=== PATIENT | female | born 1995 | race Caucasian/White ===

== ENCOUNTER 2021-12-04 06:05 | Emergency (ER) | payer BC ==
[2021-12-04] MEDS ORDERED: SODIUM CHLORIDE 1,000 ML IV ONE ×2 (06:13→06:24)
[2021-12-04] MEDS ORDERED: ONDANSETRON 4 MG/2 ML VIAL ONE (06:14)
[2021-12-04] MEDS ORDERED: ONDANSETRON 4 MG/2 ML VIAL IVPB ONE (06:14)
[2021-12-04 06:27] VITALS: BP 129/73; PULSE 70; TEMP 98.5; BMI 22.1
[2021-12-04] MEDS ORDERED: METOCLOPRAMIDE HCL INJECTION 10 MG/2 ML VIAL IVPUSH ONE (06:29)
[2021-12-04] MEDS ORDERED: METOCLOPRAMIDE HCL INJECTION 10 MG/2 ML VIAL IVPB ONE (06:31)
[2021-12-04] MEDS ORDERED: METOCLOPRAMIDE HCL INJECTION 10 MG/2 ML VIAL ONE (06:32)
[2021-12-04 07:36] LABS: HCG,QUALITATIVE URINE Negative
[2021-12-04 08:02] LABS: EPITHELIAL CELLS MODERATE /hpf; URINE MUCUS 1+
[2021-12-04] MEDS ORDERED: PROMETHAZINE HCL 25 MG TABLET PO ONE (08:21)
[2021-12-04] MEDS ORDERED: DEXTROSE 5%-NORMAL SALINE 1,000 ML IV ONE (08:23)
[2021-12-04 09:08] LABS: ALBUMIN 3.5 g/dl (3.4-5.0); BILIRUBIN,TOTAL 0.7 mg/dl (0.2-1); CALCIUM 8.6 mg/dl (8.5-10); CREATININE 0.7 mg/dl (0.55-1.3)
[2021-12-04] MEDS ORDERED: HALOPERIDOL LACTATE 5 MG/ML IM ONE (10:02)
[2021-12-04 10:03] LABS: BASO % 0.1 % (0-2.0); HEMATOCRIT 37.4 % (32.4-45.2); LYMPH % 9.3 % (8-40); MCH 31.3 pg (25.7-33.7); MCHC 34.7 g/dl (32.0-36.0); MEAN CELL VOLUME 90.2 fl (80-96); MEAN PLT VOLUME 8.5 fl (7.5-11.1); MONO % 5.7 % (3.8-10.2); NEUT % 84.9 % (42.8-82.8); PLATELET COUNT 409 10^3/uL (134-434); RBC 4.15 M/mm3 (3.60-5.2); RDW 12.9 % (11.6-15.6)
[2021-12-04] MEDS ORDERED: HALOPERIDOL LACTATE 5 MG/ML ONE (10:06)
[2021-12-04] MEDS ORDERED: ASPIRIN 81 MG CHEWABLE TABLETS ONE (13:04)
[2021-12-04] MEDS ORDERED: HEPARIN NA (PORCINE) 5,000 UNITS/ML 1ML VIAL ONE (13:05)
== END 2021-12-04 11:43 | disposition home or self-care (01) ==
LOC: FER 06:05
PROC: 3E023GC Introduction of Other Therapeutic Substance into Muscle, Percutaneous Approach (ICD-10-PCS; principal; 2021-12-04)
PROC: 3E033GC Introduction of Other Therapeutic Substance into Peripheral Vein, Percutaneous Approach (ICD-10-PCS; principal; 2021-12-04)
DX: R11.15 Cyclical vomiting syndrome unrelated to migraine (principal)
CPT/HCPCS: 36415; 80053; 81003; 81015; 84703; 85025; 99284-25

== ENCOUNTER 2021-12-06 08:44 | Observation (INO) | payer BC ==
[2021-12-06] MEDS ORDERED: SODIUM CHLORIDE 1,000 ML IV ONE (08:46)
[2021-12-06] MEDS ORDERED: ONDANSETRON 4 MG/2 ML VIAL IVPB ONE (08:47)
[2021-12-06] MEDS ORDERED: ONDANSETRON 4 MG/2 ML VIAL ONE (09:12)
[2021-12-06 09:44] LABS: ALBUMIN 4.4 g/dl (3.4-5.0); BILIRUBIN,TOTAL 0.9 mg/dl (0.2-1); CALCIUM 10.1 mg/dl (8.5-10); CREATININE 0.8 mg/dl (0.55-1.3); TOT PROT 8.6 g/dl (6.4-8.2)
[2021-12-06] MEDS ORDERED: POTASSIUM CHLORIDE ORAL LIQUID 20 MEQ/15 ML PO ONE (09:50)
[2021-12-06 10:04] LABS: BASO % 0.2 % (0-2.0); EOS % 0.1 % (0-4.5); HEMATOCRIT 44.6 % (32.4-45.2); HEMOGLOBIN 15.5 GM/dL (10.7-15.3); LYMPH % 17.7 % (8-40); MCHC 34.9 g/dl (32.0-36.0); MEAN CELL VOLUME 88.8 fl (80-96); MONO % 6.4 % (3.8-10.2); NEUT % 75.6 % (42.8-82.8); PLATELET COUNT 496 10^3/uL (134-434); RBC 5.02 M/mm3 (3.60-5.2); RDW 12.5 % (11.6-15.6); WHITE BLOOD COUNT 12.4 K/mm3 (4.0-10.0)
[2021-12-06] MEDS ORDERED: POTASSIUM CHLORIDE TABS 20 MEQ TABLET.ER (FP) PO ONE (10:05)
[2021-12-06] MEDS ORDERED: HALOPERIDOL LACTATE 5 MG/ML IM ONE (10:09)
[2021-12-06] MEDS ORDERED: DEXTROSE 5%-NORMAL SALINE 1,000 ML IV ONE (10:10)
[2021-12-06] MEDS ORDERED: KCL 10 MEQ IVPB 30 MEQ/300 ML INFUS.BAG IVPB ONE (10:22)
[2021-12-06] MEDS ORDERED: HALOPERIDOL LACTATE 5 MG/ML ONE (10:23)
[2021-12-06 10:24] LABS: HCG,QUALITATIVE URINE Negative
[2021-12-06] MEDS: KCL 10 MEQ IVPB 10 MEQ/100 ML INFUS.BAG IVPB SCH ×3 (10:34→12:55)
[2021-12-06 10:47] LABS: EPITHELIAL CELLS FEW /hpf; URINE MUCUS 1+
[2021-12-06] MEDS ORDERED: DEXTROSE 5%-NORMAL SALINE 1,000 ML IV SCH (13:30)
[2021-12-06 13:35] VITALS: BMI 22.5
[2021-12-06] MEDS ORDERED: D5-1/2NS+40 MEQ KCL - 40 MEQ/1,000 ML INFUS.BAG IV SCH ×2 (13:45→23:30)
[2021-12-06] MEDS ORDERED: VENLAFAXINE HCL 25 MG TABLET PO SCH ×4 (14:00→23:00)
[2021-12-06] MEDS ORDERED: ONDANSETRON 4 MG/2 ML VIAL IVPUSH PRN (14:15)
[2021-12-06] MEDS ORDERED: buPROPion HCL 100 MG TABLET PO SCH ×3 (18:00→23:00)
[2021-12-06 18:24] LABS: CALCIUM 9.1 mg/dl (8.5-10); CREATININE 0.7 mg/dl (0.55-1.3)
[2021-12-06] MEDS: ONDANSETRON 4 MG/2 ML VIAL IVPB PRN (20:46)
[2021-12-06] MEDS ORDERED: VENLAFAXINE HCL 75 MG TABLET PO SCH (23:00)
[2021-12-06] MEDS ORDERED: DEXTROSE 5%-0.45% SALINE 1,000 ML IV SCH (23:00)
[2021-12-07] MEDS ORDERED: ONDANSETRON 4 MG/2 ML VIAL IVPUSH ONE (00:20)
[2021-12-07] MEDS: ONDANSETRON 4 MG/2 ML VIAL IVPB PRN ×2 (03:50→12:02)
[2021-12-07] MEDS ORDERED: PROCHLORPERAZINE INJECTION 10 MG/2 ML VIAL IVPB ONE (05:32)
[2021-12-07 08:29] VITALS: PULSE 74
[2021-12-07 08:52] LABS: ALBUMIN 3.7 g/dl (3.4-5.0); BILIRUBIN,TOTAL 0.5 mg/dl (0.2-1); CALCIUM 9.4 mg/dl (8.5-10); CREATININE 0.7 mg/dl (0.55-1.3)
[2021-12-07 09:25] LABS: BASO % 0.5 % (0-2.0); EOS % 0.5 % (0-4.5); HEMATOCRIT 39.4 % (32.4-45.2); HEMOGLOBIN 13.8 GM/dL (10.7-15.3); LYMPH % 28.2 % (8-40); MCH 31.4 pg (25.7-33.7); MCHC 35.1 g/dl (32.0-36.0); MEAN CELL VOLUME 89.4 fl (80-96); NEUT % 63.8 % (42.8-82.8); PLATELET COUNT 386 10^3/uL (134-434); RBC 4.41 M/mm3 (3.60-5.2); RDW 12.6 % (11.6-15.6); WHITE BLOOD COUNT 9.5 K/mm3 (4.0-10.0)
[2021-12-07] MEDS ORDERED: BISACODYL 10 MG SUPP.RECT PR ONE (10:39)
[2021-12-07] MEDS ORDERED: DEXTROSE 5%-0.45% SALINE 1,000 ML IV SCH (11:15)
[2021-12-07 14:01] VITALS: BP 130/90; TEMP 98.6
[2021-12-07] MEDS ORDERED: VENLAFAXINE HCL 75 MG E.R. CAPSULES PO SCH (23:00)
== END 2021-12-07 15:35 | disposition home or self-care (01) ==
LOC: FER 08:44 → UNDOADMIN 12:16 → FM/S 12:16 → INTOOBSV 13:26
PROVIDERS: ADMIT Internal Medicine; ATTEND Nurse Practitioner Acute Care
PROC: 3E0337Z Introduction of Electrolytic and Water Balance Substance into Peripheral Vein, Percutaneous Approach (ICD-10-PCS; principal; 2021-12-06)
PROC: 3E033GC Introduction of Other Therapeutic Substance into Peripheral Vein, Percutaneous Approach (ICD-10-PCS; 2021-12-06)
PROC: 3E013GC Introduction of Other Therapeutic Substance into Subcutaneous Tissue, Percutaneous Approach (ICD-10-PCS; 2021-12-06)
DX: E87.6 Hypokalemia (principal); E86.0 Dehydration; E83.52 Hypercalcemia; R11.2 Nausea with vomiting, unspecified
CPT/HCPCS: 36415; 71046-TC-FY; 80048; 80053; 81003; 81015; 83735; 84703; 85025; 85027; 93005; 99285-25; C9803-CS; G0378; U0003; U0005

== ENCOUNTER 2021-12-16 09:00 | Observation (INO) | payer BC ==
[2021-12-16 09:08] VITALS: BMI 22.1
[2021-12-16] MEDS ORDERED: SODIUM CHLORIDE 0.9% 500 ML INFUS.BAG IV ONE (09:16)
[2021-12-16] MEDS ORDERED: METOCLOPRAMIDE HCL INJECTION 10 MG/2 ML VIAL IVPB ONE ×2 (09:33→22:20)
[2021-12-16] MEDS ORDERED: FAMOTIDINE 20 MG/50 ML IVPB 20 MG/50 ML MG IVPB ONE ×2 (09:34→09:43)
[2021-12-16] MEDS ORDERED: METOCLOPRAMIDE HCL INJECTION 10 MG/2 ML VIAL ONE (09:43)
[2021-12-16 09:58] LABS: ALBUMIN 4.2 g/dl (3.4-5.0); BILIRUBIN,TOTAL 0.7 mg/dl (0.2-1); CALCIUM 10.3 mg/dl (8.5-10); CREATININE 0.8 mg/dl (0.55-1.3); TOT PROT 7.8 g/dl (6.4-8.2)
[2021-12-16] MEDS ORDERED: SODIUM CHLORIDE 0.9% 1000 ML INFUS.BAG IV ONE (10:09)
[2021-12-16] MEDS ORDERED: POTASSIUM CHLORIDE TABS 20 MEQ TABLET.ER (FP) PO ONE (10:11)
[2021-12-16] MEDS ORDERED: POTASSIUM CHLORIDE ORAL LIQUID 20 MEQ/15 ML PO ONE (10:11)
[2021-12-16] MEDS ORDERED: SODIUM BICARBONATE 2.4 MEQ/5 ML SDVIAL IV ONE (10:12)
[2021-12-16 10:15] LABS: HCG,QUALITATIVE URINE Negative
[2021-12-16] MEDS ORDERED: HALOPERIDOL DECANOATE 100 MG/ML IM ONE (10:21)
[2021-12-16] MEDS ORDERED: KCL 10 MEQ IVPB 30 MEQ/300 ML INFUS.BAG IVPB ONE (10:21)
[2021-12-16 10:33] LABS: EPITHELIAL CELLS FEW /hpf
[2021-12-16 10:34] LABS: AMORP URATES 4+ /hpf (NONE SEEN)
[2021-12-16] MEDS ORDERED: HALOPERIDOL LACTATE 5 MG/ML ONE (10:36)
[2021-12-16] MEDS: KCL 10 MEQ IVPB 10 MEQ/100 ML INFUS.BAG IVPB SCH ×3 (10:40→13:34)
[2021-12-16 10:46] LABS: BASO % 0.8 % (0-2.0); EOS % 0.1 % (0-4.5); HEMATOCRIT 43.6 % (32.4-45.2); LYMPH % 28.5 % (8-40); MCH 30.8 pg (25.7-33.7); MCHC 34.5 g/dl (32.0-36.0); MEAN CELL VOLUME 89.1 fl (80-96); MEAN PLT VOLUME 8.6 fl (7.5-11.1); MONO % 8.7 % (3.8-10.2); NEUT % 61.9 % (42.8-82.8); PLATELET COUNT 442 10^3/uL (134-434); RBC 4.89 M/mm3 (3.60-5.2); RDW 12.7 % (11.6-15.6); WHITE BLOOD COUNT 12.4 K/mm3 (4.0-10.0)
[2021-12-16 11:25] LABS: COCAINE, UR NEGATIVE (NEGATIVE); METHADONE, UR NEGATIVE (NEGATIVE); OPIATES, URI NEGATIVE (NEGATIVE); PHENCYCLIDINE,URINE NEGATIVE (NEGATIVE); URINE AMPHETAMINES NEGATIVE (NEGATIVE); URINE BARBITURATES NEGATIVE (NEGATIVE); URINE BENZODIAZEPINES POSITIVE (NEGATIVE)
[2021-12-16] MEDS ORDERED: ONDANSETRON 4 MG/2 ML VIAL IVPUSH PRN (12:53)
[2021-12-16] MEDS ORDERED: CEFTRIAXONE 1 GM in DEXTROSE 5%-WATER - 50 ML IVPB SCH (13:15)
[2021-12-16] MEDS: D5-1/2NS+10 MEQ KCL - 10 MEQ/1,000 ML INFUS.BAG IV SCH (14:12)
[2021-12-16] MEDS: FAMOTIDINE 20 MG/50 ML IVPB 20 MG/50 ML MG IVPB SCH ×2 (14:14→21:50)
[2021-12-16] MEDS: ALPRAZolam 0.25 MG TABLET PO SCH (22:59)
[2021-12-16] MEDS ORDERED: VENLAFAXINE HCL 25 MG TABLET PO SCH (23:00)
[2021-12-17] MEDS: FAMOTIDINE 20 MG/50 ML IVPB 20 MG/50 ML MG IVPB SCH (09:29)
[2021-12-17] MEDS: ALPRAZolam 0.25 MG TABLET PO SCH (09:29)
[2021-12-17 09:47] LABS: ALBUMIN 3.9 g/dl (3.4-5.0); BILIRUBIN,TOTAL 0.6 mg/dl (0.2-1); CALCIUM 9.9 mg/dl (8.5-10); CREATININE 0.7 mg/dl (0.55-1.3); MAGNESIUM 1.8 mg/dL (1.8-2.4); TOT PROT 7.7 g/dl (6.4-8.2)
[2021-12-17] MEDS: POTASSIUM CHLORIDE TABS 20 MEQ TABLET.ER (FP) PO SCH ×2 (10:49→16:09)
[2021-12-17] MEDS ORDERED: ENOXAPARIN NA (PORCINE) 40 MG/0.4 ML DISP.SYRIN SQ SCH (11:15)
[2021-12-17] MEDS ORDERED: MAGNESIUM HYDROX 2400MG/30ML ORAL SUSPENSION 30 ML CUP PO ONE (12:35)
[2021-12-17 12:38] LABS: BASO % 0.8 % (0-2.0); EOS % 0.7 % (0-4.5); HEMATOCRIT 40.9 % (32.4-45.2); HEMOGLOBIN 14.4 GM/dL (10.7-15.3); LYMPH % 38.4 % (8-40); MCH 31.4 pg (25.7-33.7); MCHC 35.3 g/dl (32.0-36.0); MEAN CELL VOLUME 89.1 fl (80-96); MEAN PLT VOLUME 8.5 fl (7.5-11.1); MONO % 7.9 % (3.8-10.2); NEUT % 52.2 % (42.8-82.8); PLATELET COUNT 388 10^3/uL (134-434); RBC 4.59 M/mm3 (3.60-5.2); RDW 12.5 % (11.6-15.6); WHITE BLOOD COUNT 11.5 K/mm3 (4.0-10.0)
[2021-12-17 14:05] VITALS: BP 125/79; PULSE 92; TEMP 98.6
[2021-12-17 14:41] LABS: CALCIUM 9.6 mg/dl (8.5-10); CREATININE 0.7 mg/dl (0.55-1.3); MAGNESIUM 1.9 mg/dL (1.8-2.4)
[2021-12-17] MEDS: D5-1/2NS+10 MEQ KCL - 10 MEQ/1,000 ML INFUS.BAG IV SCH (16:09)
== END 2021-12-17 16:34 | disposition home or self-care (01) ==
LOC: FER 09:00 → FM/S 12:22 → UNDOADMOB 12:22 → OBSVTOIN 12:52 → INTOOBSV 12:52 → FM/S 16:04
PROVIDERS: ADMIT Internal Medicine; ATTEND Nurse Practitioner Acute Care
PROC: 3E023GC Introduction of Other Therapeutic Substance into Muscle, Percutaneous Approach (ICD-10-PCS; principal; 2021-12-16)
PROC: 3E033GC Introduction of Other Therapeutic Substance into Peripheral Vein, Percutaneous Approach (ICD-10-PCS; 2021-12-16)
PROC: 3E0337Z Introduction of Electrolytic and Water Balance Substance into Peripheral Vein, Percutaneous Approach (ICD-10-PCS; 2021-12-16)
DX: F12.10 Cannabis abuse, uncomplicated (principal); R11.2 Nausea with vomiting, unspecified; F41.9 Anxiety disorder, unspecified; Z90.89 Acquired absence of other organs; E87.6 Hypokalemia; E83.52 Hypercalcemia; Z29.8 Encounter for other specified prophylactic measures
CPT/HCPCS: 36415; 71045-TC-FY; 74177-TC; 80048; 80053; 80307; 81003; 81015; 82436; 83690; 83735; 84133; 84300; 84703; 85025; 86704; 86705; 86708; 86803; 87040; 87177; 87209; 87340; 87517; 93005; 99285-25; C9803-CS; G0378; Q9967; U0003; U0005

== ENCOUNTER 2021-12-24 21:02 | Emergency (ER) | payer BC ==
[2021-12-24] MEDS ORDERED: SODIUM CHLORIDE 1,000 ML IV STA ×2 (21:12→22:05)
[2021-12-24] MEDS ORDERED: FAMOTIDINE 20 MG/50 ML IVPB 20 MG/50 ML MG IVPB ONE ×2 (21:24)
[2021-12-24] MEDS ORDERED: HALOPERIDOL LACTATE 5 MG/ML IM ONE ×2 (21:24→22:54)
[2021-12-24] MEDS ORDERED: HALOPERIDOL LACTATE 5 MG/ML ONE (21:24)
[2021-12-24 21:28] LABS: HEMATOCRIT 46.2 % (32.4-45.2); HEMOGLOBIN 16.5 G/dL (10.7-15.3); MCHC 35.8 g/dl (32.0-36.0); MEAN CELL VOLUME 89.4 fl (80-96); MEAN PLT VOLUME 8.7 fl (7.5-11.1); PLATELET COUNT 369.8 10^3/uL (134-434); RBC 5.17 10^6/uL (3.60-5.2); RDW 13.5 % (11.6-15.6)
[2021-12-24 21:38] VITALS: BP 137/78; PULSE 100; BMI 21.2
[2021-12-24 22:04] LABS: ALBUMIN 4.3 g/dl (3.4-5.0); CALCIUM 10.4 mg/dl (8.5-10); CREATININE 0.8 mg/dl (0.55-1.3); TOT PROT 8.3 g/dl (6.4-8.2)
[2021-12-24 22:28] LABS: ANISOCYTOSIS RARE
[2021-12-24 22:29] LABS: PLATELET ESTIMATE ADEQUATE
[2021-12-24 23:26] LABS: HEMOGLOBIN 13.4 G/dL (10.7-15.3); MCH 32.2 pg (25.7-33.7); MEAN CELL VOLUME 89.4 fl (80-96); MEAN PLT VOLUME 8.6 fl (7.5-11.1); RBC 4.15 10^6/uL (3.60-5.2); RDW 13.1 % (11.6-15.6)
[2021-12-24 23:28] LABS: HEMATOCRIT 37.1 % (32.4-45.2)
[2021-12-24 23:45] LABS: ANISOCYTOSIS RARE; PLATELET ESTIMATE ADEQUATE
[2021-12-24] MEDS ORDERED: POTASSIUM CHLORIDE TABS 20 MEQ TABLET.ER (FP) PO ONE (23:49)
[2021-12-24] MEDS ORDERED: POTASSIUM CHLORIDE ORAL LIQUID 20 MEQ/15 ML PO ONE (23:52)
== END 2021-12-25 00:57 | disposition home or self-care (01) ==
LOC: FER 21:02
PROC: 3E033GC Introduction of Other Therapeutic Substance into Peripheral Vein, Percutaneous Approach (ICD-10-PCS; principal; 2021-12-24)
PROC: 3E023GC Introduction of Other Therapeutic Substance into Muscle, Percutaneous Approach (ICD-10-PCS; principal; 2021-12-24)
DX: R11.15 Cyclical vomiting syndrome unrelated to migraine (principal)
CPT/HCPCS: 36415; 80053; 85025; 99284-25

== ENCOUNTER 2021-12-25 15:07 | Emergency (ER) | payer BC ==
[2021-12-25] MEDS ORDERED: diazePAM CARPU-JECT 10 MG/2 ML DISP.SYRIN IVPUSH ONE ×2 (15:33→17:59)
[2021-12-25] MEDS ORDERED: FAMOTIDINE 20 MG/50 ML IVPB 20 MG in PREMIX 50 IVPB ONE (15:33)
[2021-12-25 15:36] VITALS: BP 143/90; PULSE 99; TEMP 99; BMI 22.1
[2021-12-25] MEDS ORDERED: diazePAM CARPU-JECT 10 MG/2 ML DISP.SYRIN ONE ×2 (15:48→18:17)
[2021-12-25] MEDS ORDERED: FAMOTIDINE 20 MG/50 ML IVPB 20 MG/50 ML MG IVPB ONE (15:48)
[2021-12-25] MEDS ORDERED: SODIUM CHLORIDE 0.9% 500 ML INFUS.BAG IV ONE (16:07)
[2021-12-25 17:28] LABS: ALBUMIN 3.9 g/dl (3.4-5.0); BILIRUBIN,TOTAL 0.7 mg/dl (0.2-1); CALCIUM 9.8 mg/dl (8.5-10); CREATININE 0.6 mg/dl (0.55-1.3); MAGNESIUM 1.7 mg/dL (1.8-2.4); TOT PROT 7.5 g/dl (6.4-8.2)
[2021-12-25] MEDS ORDERED: MAGNESIUM SULF 50% (8.12 MEQ/2 ML-1 GM VIAL) IVPB ONE (17:30)
[2021-12-25] MEDS ORDERED: PIPERACILLIN/TAZOBACTAM 3.375 GM VIAL IVPB ONE (17:39)
[2021-12-25] MEDS ORDERED: VANCOMYCIN 1,000 MG VIAL (RESTRICTED TO ID ONLY) ONE (17:40)
[2021-12-25] MEDS ORDERED: MAGNESIUM 1GM/D5W - 1 GM/100 ML IVPB IVPB ONE (17:43)
[2021-12-25] MEDS ORDERED: POTASSIUM CHLORIDE TABS 20 MEQ TABLET.ER (FP) PO ONE ×2 (17:54→18:18)
== END 2021-12-25 19:03 | disposition home or self-care (01) ==
LOC: FER 15:07
PROC: 3E033NZ Introduction of Analgesics, Hypnotics, Sedatives into Peripheral Vein, Percutaneous Approach (ICD-10-PCS; principal; 2021-12-25)
PROC: 3E033NZ Introduction of Analgesics, Hypnotics, Sedatives into Peripheral Vein, Percutaneous Approach (ICD-10-PCS; 2021-12-25)
PROC: 3E033GC Introduction of Other Therapeutic Substance into Peripheral Vein, Percutaneous Approach (ICD-10-PCS; 2021-12-25)
PROC: 3E033GC Introduction of Other Therapeutic Substance into Peripheral Vein, Percutaneous Approach (ICD-10-PCS; 2021-12-25)
DX: R11.15 Cyclical vomiting syndrome unrelated to migraine (principal)
CPT/HCPCS: 36415; 80053; 83735; 99284-25

== ENCOUNTER 2022-01-05 14:12 | Observation (INO) | payer BC ==
[2022-01-05] MEDS ORDERED: SODIUM CHLORIDE 0.9% 1000 ML INFUS.BAG IV ONE ×3 (14:54→18:40)
[2022-01-05] MEDS ORDERED: FAMOTIDINE 20 MG/50 ML IVPB 20 MG/50 ML MG IVPB ONE ×2 (14:54→15:52)
[2022-01-05] MEDS ORDERED: ONDANSETRON 4 MG/2 ML VIAL IVPUSH ONE (14:54)
[2022-01-05] MEDS ORDERED: ONDANSETRON 4 MG/2 ML VIAL ONE (15:13)
[2022-01-05 15:23] LABS: BILIRUBIN,TOTAL 1.1 mg/dl (0.2-1); CALCIUM 9.7 mg/dl (8.5-10); CREATININE 0.7 mg/dl (0.55-1.3); HEMATOCRIT 41.7 % (32.4-45.2); HEMOGLOBIN 14.9 G/dL (10.7-15.3); MAGNESIUM 1.7 mg/dL (1.8-2.4); MCH 31.8 pg (25.7-33.7); MCHC 35.8 g/dl (32.0-36.0); MEAN PLT VOLUME 8.4 fl (7.5-11.1); PLATELET COUNT 321.5 10^3/uL (134-434); RBC 4.69 10^6/uL (3.60-5.2); RDW 13.5 % (11.6-15.6); TOT PROT 7.5 g/dl (6.4-8.2); WHITE BLOOD COUNT 13.3 10^3/uL (4.0-10.8)
[2022-01-05] MEDS ORDERED: MAGNESIUM SULF 50% (8.12 MEQ/2 ML-1 GM VIAL) IVPB ONE (15:47)
[2022-01-05] MEDS ORDERED: MAGNESIUM 1GM/D5W - 2 GM/200 ML IVPB IVPB ONE (15:52)
[2022-01-05] MEDS ORDERED: LORazepam 2 MG/ML SDV VIAL IVPUSH ONE (16:17)
[2022-01-05 16:37] LABS: HCG,QUALITATIVE URINE Negative
[2022-01-05 17:32] LABS: EPITHELIAL CELLS FEW /hpf
[2022-01-05 18:05] LABS: METHADONE, UR NEGATIVE (NEGATIVE); URINE AMPHETAMINES NEGATIVE (NEGATIVE)
[2022-01-05 18:06] LABS: OPIATES, URI NEGATIVE (NEGATIVE); PHENCYCLIDINE,URINE NEGATIVE (NEGATIVE)
[2022-01-05] MEDS ORDERED: METOCLOPRAMIDE HCL INJECTION 10 MG/2 ML VIAL ONE ×2 (18:43→19:22)
[2022-01-05] MEDS: METOCLOPRAMIDE HCL INJECTION 10 MG/2 ML VIAL IVPUSH ONE ×2 (18:47→19:24)
[2022-01-05] MEDS: METOCLOPRAMIDE HCL INJECTION 10 MG/2 ML VIAL IVPB ONE ×2 (18:47→18:48)
[2022-01-05 18:59] LABS: COCAINE, UR NEGATIVE (NEGATIVE); URINE BARBITURATES NEGATIVE (NEGATIVE); URINE BENZODIAZEPINES POSITIVE (NEGATIVE)
[2022-01-05] MEDS ORDERED: POLYETHYLENE GLYCOL 3350 119 GM BTL PO PRN (20:20)
[2022-01-05] MEDS ORDERED: METOCLOPRAMIDE HCL 10 MG TABLET (FP) PO PRN (22:00)
[2022-01-05] MEDS: ALPRAZolam 0.25 MG TABLET PO PRN (22:45)
[2022-01-05] MEDS: TRIMETHOBENZAMIDE HCL 200MG/2ML INJ IM PRN (22:46)
[2022-01-05] MEDS: D5-NS + 20 MEQ KCL - 20 MEQ/1,000 ML INFUS.BAG IV SCH (22:47)
[2022-01-05] MEDS ORDERED: VENLAFAXINE HCL 25 MG TABLET PO SCH (23:00)
[2022-01-06] MEDS ORDERED: ALPRAZolam 1 MG TABLET PO PRN (01:35)
[2022-01-06] MEDS ORDERED: LORazepam 2 MG/ML SDV VIAL IVPUSH ONE ×3 (01:43→19:58)
[2022-01-06] MEDS: FAMOTIDINE 20 MG/50 ML IVPB 20 MG/50 ML MG IVPB SCH ×3 (02:01→22:42)
[2022-01-06] MEDS: VENLAFAXINE HCL 75 MG TABLET PO SCH (04:00)
[2022-01-06 04:52] VITALS: BMI 46.0
[2022-01-06] MEDS: ALPRAZolam 0.25 MG TABLET PO PRN ×2 (05:02→18:31)
[2022-01-06] MEDS: TRIMETHOBENZAMIDE HCL 200MG/2ML INJ IM PRN (06:09)
[2022-01-06] MEDS ORDERED: ACETAMINOPHEN 325 MG TABLET (FP) PO ONE (08:57)
[2022-01-06 09:25] LABS: HEMATOCRIT 40.9 % (32.4-45.2); HEMOGLOBIN 14.8 G/dL (10.7-15.3); MCH 32.4 pg (25.7-33.7); MCHC 36.1 g/dl (32.0-36.0); MEAN CELL VOLUME 89.7 fl (80-96); MEAN PLT VOLUME 8.5 fl (7.5-11.1); PLATELET COUNT 323.7 10^3/uL (134-434); RBC 4.56 10^6/uL (3.60-5.2)
[2022-01-06] MEDS ORDERED: ONDANSETRON 4 MG/2 ML VIAL IVPUSH ONE (09:27)
[2022-01-06 09:47] LABS: CALCIUM 9.3 mg/dl (8.5-10); CREATININE 0.5 mg/dl (0.55-1.3)
[2022-01-06 11:33] LABS: METHADONE, UR NEGATIVE (NEGATIVE); OPIATES, URI NEGATIVE (NEGATIVE); PHENCYCLIDINE,URINE NEGATIVE (NEGATIVE); URINE AMPHETAMINES NEGATIVE (NEGATIVE)
[2022-01-06 11:36] LABS: COCAINE, UR NEGATIVE (NEGATIVE); URINE BARBITURATES NEGATIVE (NEGATIVE); URINE BENZODIAZEPINES POSITIVE (NEGATIVE)
[2022-01-06] MEDS ORDERED: PROCHLORPERAZINE INJECTION 10 MG/2 ML VIAL IVPB ONE (12:40)
[2022-01-06] MEDS ORDERED: ACETAMINOPHEN 1000 MG/100 ML BAG IVPB ONE ×2 (12:41→22:00)
[2022-01-06 14:48] LABS: PLATELET ESTIMATE ADEQUATE
[2022-01-06] MEDS: D5-NS + 20 MEQ KCL - 20 MEQ/1,000 ML INFUS.BAG IV SCH (16:23)
[2022-01-06] MEDS ORDERED: SCOPOLAMINE HYDROBROMIDE 1 PATCH PATCH.TD72 TD SCH (18:00)
[2022-01-06] MEDS ORDERED: HALOPERIDOL LACTATE 5 MG/ML IM ONE (23:07)
[2022-01-07] MEDS ORDERED: ALPRAZolam 1 MG TABLET PO PRN
[2022-01-07] MEDS: TRIMETHOBENZAMIDE HCL 200MG/2ML INJ IM PRN ×2 (00:39→07:47)
[2022-01-07 06:15] VITALS: TEMP 97.8
[2022-01-07] MEDS ORDERED: POLYETHYLENE GLYCOL (HEALTHYLAX) 3350 17 GM PACKET PO PRN (07:38)
[2022-01-07 08:17] LABS: CALCIUM 9.8 mg/dl (8.5-10); CREATININE 0.6 mg/dl (0.55-1.3); MAGNESIUM 1.9 mg/dL (1.8-2.4)
[2022-01-07 08:20] LABS: HEMATOCRIT 41.6 % (32.4-45.2); HEMOGLOBIN 14.8 G/dL (10.7-15.3); MCH 32.1 pg (25.7-33.7); MCHC 35.7 g/dl (32.0-36.0); PLATELET COUNT 359.2 10^3/uL (134-434); RBC 4.62 10^6/uL (3.60-5.2); RDW 13.3 % (11.6-15.6); WHITE BLOOD COUNT 10.2 10^3/uL (4.0-10.8)
[2022-01-07] MEDS: VENLAFAXINE HCL 75 MG TABLET PO SCH ×2 (08:38)
[2022-01-07] MEDS ORDERED: POTASSIUM CHLORIDE TABS 20 MEQ TABLET.ER (FP) PO ONE (09:30)
[2022-01-07 09:49] VITALS: BP 151/89; PULSE 82
== END 2022-01-07 10:20 | disposition home or self-care (01) ==
LOC: FER 14:12 → FM/S 19:33
PROVIDERS: ADMIT Internal Medicine; ATTEND Nurse Practitioner Acute Care
PROC: 3E033NZ Introduction of Analgesics, Hypnotics, Sedatives into Peripheral Vein, Percutaneous Approach (ICD-10-PCS; principal; 2022-01-05)
PROC: 3E0337Z Introduction of Electrolytic and Water Balance Substance into Peripheral Vein, Percutaneous Approach (ICD-10-PCS; 2022-01-05)
PROC: 3E033GC Introduction of Other Therapeutic Substance into Peripheral Vein, Percutaneous Approach (ICD-10-PCS; 2022-01-05)
PROC: 3E023GC Introduction of Other Therapeutic Substance into Muscle, Percutaneous Approach (ICD-10-PCS; 2022-01-05)
PROC: 3E0337Z Introduction of Electrolytic and Water Balance Substance into Peripheral Vein, Percutaneous Approach (ICD-10-PCS; 2022-01-05)
DX: R11.2 Nausea with vomiting, unspecified (principal); F12.90 Cannabis use, unspecified, uncomplicated; E83.42 Hypomagnesemia; R25.1 Tremor, unspecified; I45.81 Long QT syndrome; F41.8 Other specified anxiety disorders
CPT/HCPCS: 36415; 71045-TC-FY; 74018-TC-FY; 80048; 80053; 80307; 81003; 81015; 82533; 82962; 83690; 83735; 84443; 84703; 85025; 85027; 87804; 93005; 93010; 99291; C9803-CS; G0378; G0480; U0003; U0005